=== PATIENT | male | born 1975 | race Caucasian/White ===

== ENCOUNTER 2022-06-13 15:33 | Outpatient (CLI) | payer BC, SELFPAY ==
[2022-06-13 16:08] LABS: Basophils Absolute Auto 0.1 K/mm3 (0.0-0.1); Basophils Percent Auto 0.5 % (0.2-1.2); Eosinophils Absolute Auto 0.2 K/mm3 (0-0.3); Eosinophils Percent Auto 1.4 % (0-4.4); Hematocrit 46.4 % (42.0-52.0); Hemoglobin 15.4 g/dL (14.0-18.0); Immature Granulocyte Absolute 0.03 K/mm3 (0.00-0.031); Immature Granulocyte Percent A 0.3 % (0-0.5); Lymphocytes Absolute Auto 2.76 K/mm3 (0.9-3.2); Lymphocytes Percent Auto 25.1 % (18.3-44.2); Mean Corpuscular HGB Conc 33.2 g/dl (32-36); Mean Corpuscular Hemoglobin 29.2 pg (26-34); Mean Corpuscular Volume 87.9 fl (80-100); Mean Platelet Volume 9.7 fl (7.4-10.4); Monocytes Absolute Auto 0.9 K/mm3 (0.1-0.6); Neutrophils Absolute Auto 7.1 K/mm3 (1.3-6.7); Neutrophils Percent Auto 64.7 % (45.5-73.1); Platelet Count Result 315 k/mm3 (150-375); Red Blood Count 5.28 M/mm3 (4.6-6.20)
[2022-06-13 16:11] LABS: Alanine Aminotransferase 36 U/L (6-50); Albumin Level 4.3 g/dL (3.5-5.1); Alkaline Phosphatase 78 U/L (38-126); Anion Gap 12 mmol/L (8-16); Aspartate Amino Transferase 32 U/L (17-59); Bilirubin,Total 0.8 mg/dL (0.2-1.3); Blood Urea Nitrogen 20 mg/dL (9-20); Calcium 9.1 mg/dL (8.4-10.2); Carbon Dioxide 27 mmol/L (22-30); Chloride 101 mmol/L (98-107); Estimated Glomerular Filt Rate > 60; Glucose 91 mg/dL (65-110); Potassium 3.9 mmol/L (3.4-5.0); Sodium 140 mmol/L (137-145); Uric Acid 4.4 mg/dL (3.5-8.5)
== END 2022-06-13 15:34 | disposition home or self-care (01) ==
LOC: ANHLAB 15:36
PROVIDERS: PCP Family Medicine; Visit Provider Family Medicine
DX: L03.90 Cellulitis, unspecified (principal); I10 Essential (primary) hypertension
CPT/HCPCS: 36415; 80053; 84550; 85025

== ENCOUNTER 2024-09-26 10:30 | Emergency (ER) | payer BC, SELFPAY ==
[2024-09-26 11:01] VITALS: BP 117/81; PULSE 72; RESP 18; TEMP 36.2; O2SAT 98
--- NOTE | 2024-09-26 11:16 | ED.URI ---
HPI - URI/Sore Throat General Chief Complaint: Upper Respiratory Infection Stated Complaint: respiratory issues Source: patient and RN notes reviewed Mode of arrival: ambulatory Limitations: no limitations History of Present Illness HPI Narrative: 49-year-old male with history of diabetes and hypertension presented for complaint of nonproductive cough for about 2 days. Endorses loss of smell and fatigue. Denies shortness of breath, wheezing nausea vomiting diarrhea or lethargy. Tested negative for COVID first day of symptoms. MD elicited complaint: cough Related Data Allergies Allergy/AdvReac Type Severity Reaction Status Date / Time Penicillins Allergy Unknown UNKNOWN Verified 09/26/24 10:57 Review of Systems Review of Systems: Per HPI [facility] Past Medical History Medical History Elevated red blood cell count Wellness examination Gout Fatty liver HEMA (obstructive sleep apnea) Erythrocytosis Type 2 diabetes mellitus without complications Hyperlipidemia Essential hypertension Family History Family History Father Hypertension Sibling Hypertension Grandparent Family history of lung cancer Social History Social History Smoking status: Never smoker Second hand tobacco smoke exposure: No Alcohol intake: current Alcohol use details: rare Substance use: never Substance use type: does not use Living arrangements: with family Occupation/Education: occupation Gender identity (if verbalized by the patient): Male Sexual Orientation (if Verbalized by the Patient): Straight or Heterosexual Exam Narrative: GENERAL: Mildly Ill-appearing, nontoxic no acute distress. ENT: Mucous membranes moist. Bilateral TM pearly fields with dull light reflex, right TM is irregular c/w history of surgery; no tragal tenderness. Oropharynx not erythematous without lesions or exudate, no drooling, no hoarseness, no trismus, uvula midline. No tripod positioning, muffled voice, soft palate or pharyngeal wall bulging NECK: Supple. No lymphadenopathy CHEST: Clear to auscultation, breath sounds equal. Moist cough. No wheezing, rhonchi, rales, or stridor. No respiratory distress, speaks in full sentences. HEART: Regular rate and rhythm. SKIN: Warm, dry, no rash. NEURO: Alert and oriented x3. PSYCH: Normal mood and affect Course Course Emergency Course: Patient is aware of diagnosis, understands and agrees to treatment plan. Anticipatory guidance given. Patient agrees to follow-up as directed and is aware of reasons to seek care at the emergency department. Portions of this record may have been created with voice recognition software Level of Care: Express Care Visit Vital Signs Vital signs: Vital Signs Temperature 97.1 F L 09/26/24 11:01 Pulse Rate 72 09/26/24 11:01 Respiratory Rate 18 09/26/24 11:01 Blood Pressure 117/81 09/26/24 11:01 Pulse Oximetry 98 09/26/24 11:01 Oxygen Delivery Room Air 09/26/24 11:01 Temperature 97.1 F L 09/26/24 11:01 Pulse Rate 72 09/26/24 11:01 Respiratory Rate 18 09/26/24 11:01 Blood Pressure 117/81 09/26/24 11:01 Pulse Oximetry 98 09/26/24 11:01 Oxygen Delivery Room Air 09/26/24 11:01 reviewed MDM - URI/Sore Throat MDM Narrative Medical decision making narrative: neg flu and covid. Discussed physical exam findings. Advised supportive measures and signs/symptoms to go to the ER. Pt is appropriate for outpt treatment and f/u. Differential Diagnosis Differential diagnosis: Likely upper respiratory infection, sinusitis and viral infection Discharge Plan Discharge Clinical Impression: Viral infection Patient Disposition: Home, Self-Care Condition: Stable Instructions: Antibiotic Form, Acute Bronchitis (ED) Additional Instructions: Flu and COVID negative. Acute bronchitis can be contagious because it is usually caused by infection with a virus or bacteria. It is usually for a few days but you can be contagious for up to one week. Avoid crowds until you do not have a fever and symptoms are improved Take medication as directed nter Cough syrup may cause drowsiness; avoid driving or take it at night time. Tylenol 1000mg every 8 hours as needed for pain Symptomatic treatment includes: rest, fluids, and increase humidity of the air at home. Follow up with your primary care provider as needed in 1 week Go to the ER for worsening symptoms or concerns Patient Language: R[place] Prescriptions: New benzonatate 200 mg capsule 200 mg PO TID PRN (Reason: cough) Qty: 20 0RF prednisone 20 mg tablet 40 mg PO DAILY 5 Days Qty: 10 0RF No Action semaglutide 2 mg/dose (8 mg/3 mL) pen injector 2 mg subcut WEEKLY Qty: 9 2RF (DME) FreeStyle Ashok 2 [place] Misc See Rx Instructions .Route Qty: 1 0RF Rx Instructions: test prn (DME) FreeStyle Ashok 14 Day Sensor Kit See Rx Instructions .Route Qty: 6 5RF Rx Instructions: apply q2 wks, test prn sildenafil [Viagra] 50 mg tablet 50 mg PO DAILY PRN (Reason: sexual activity) Qty: 30 0RF Rx Instructions: administer 30 minutes to 4 hours before activity bupropion HCl [Wellbutrin SR] 150 mg tablet sustained-release 12 hr 150 mg PO QAM Qty: 1 0RF indomethacin 50 mg capsule 50 mg PO BID PRN (Reason: gout) Qty: 90 0RF Rx Instructions: do not take with Ibuprofen lisinopril 40 mg tablet See Rx Instructions .ROUTE .COMPLEX Qty: 90 3RF Dose Instruction: TAKE 1 TABLET DAILY Rx Instructions: TAKE 1 TABLET DAILY atorvastatin 10 mg tablet See Rx Instructions .ROUTE .COMPLEX Qty: 90 2RF Dose Instruction: TAKE 1 TABLET DAILY Rx Instructions: TAKE 1 TABLET DAILY hydrochlorothiazide 25 mg tablet 25 mg PO DAILY Qty: 90 0RF metformin 500 mg tablet extended release 24 hr 1,000 mg PO DAILY Qty: 180 2RF Follow-up/Referrals: Antonio Lawson MD [Primary Care Provider] - Time of Disposition: 11:22
[2024-09-26 11:21] LABS: EDCOVIDSCREEN Negative (Negative); EDINFLUASCREEN Negative (Negative); EDINFLUBSCREEN Negative (Negative)
== END 2024-09-26 11:25 | disposition home or self-care (01) ==
PROVIDERS: Emergency Provider Nurse Practitioner Family; PCP Family Medicine
DX: B34.9 Viral infection, unspecified (principal); Z20.822 Contact with and (suspected) exposure to COVID-19; E11.9 Type 2 diabetes mellitus without complications; I10 Essential (primary) hypertension; E78.5 Hyperlipidemia, unspecified; K76.0 Fatty (change of) liver, not elsewhere classified; M10.9 Gout, unspecified
CPT/HCPCS: 87426; 87804; 99213; G0463

== ENCOUNTER 2025-03-18 10:59 | Outpatient (CLI) | payer BC, SELFPAY ==
--- OUTSIDE RECORDS SUMMARY | 2025-03-18 11:46 | XMS_ITS | Clinical Summary ---
Author Organization [facility] Address [address] [place] [address] Care Team Providers Care Braid Folder Name Role Phone Antonio Lawson MD Primary Care Provider Allergies Active Allergy Reactions Criticality Noted Date Comments Aspirin Nausea and Vomiting Low 11/25/2017 Penicillins Hives High 11/25/2017 Medications lisinopril-hydro CHLOROthiazide (ZESTORETIC) 20-12.5 mg tablet Take 1 Tablet by mouth daily. Active metFORMIN (GLUCOPHAGE) 500 mg tablet Take 500 mg by mouth 2 times daily with meals. 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 HYDROcodone-acet aminophen (NORCO) 10-325 mg Tablet TAKE 1 TABLET BY MOUTH 4 TIMES A DAY 0 11/04/2017 Active VENTOLIN HFA 90 mcg/actuation inhaler INHALE 1 TO 2 PUFFS INTO THE LUNGS Q 6 H PRN 0 12/17/2017 Active Active Problems Problem Noted Date Diagnosed Date HTN (hypertension), benign 11/25/2017 DM (diabetes mellitus), type 2 11/25/2017 Erythrocytosis 11/25/2017 Family History Medical History Relation Name Comments Hypertension Brother Hypertension Father Lung Cancer Paternal Grandmother Relation Name Status Comments Brother Father Paternal Grandmother Social History Tobacco Use Types Packs/Day Years Used Date Smoking Tobacco: Never Smokeless Tobacco: Former Chew Quit: 2014 Alcohol Use Standard Drinks/Week Comments No 0 (1 standard drink = 0.6 oz pur e alcohol) occasionally Sex and Gender Information Value Date Recorded Sex Assigned at Not on file Legal Sex Male 3:36 PM CDT Gender Identity Not on file Sexual Orientation Not on file Last Filed Vital Signs Vital Sign Reading Time Taken Comments Blood Pressure 109/71 06/20/2018 11:47 AM [facility] Pulse 82 06/20/2018 11:47 AM [facility] [employer] Temperature 36.6 C (97.8 F) 06/20/2018 11:47 AM [facility] [employer] Respiratory Rate 18 01/09/2018 11:19 AM CDT Oxygen Saturation 93% 06/20/2018 11:47 AM [employer] Inhaled Oxygen Concentration - - Weight 102.5 kg (226 lb) 06/20/2018 11:47 AM [facility] [employer] Height 167.6 cm (5' 6) 06/20/2018 11:47 AM [employer] [employer] Body Mass Index 36.48 06/20/2018 11:47 AM [facility] [employer] Plan of Treatment Health Maintenance Due Date Last Done Comments DIABETES ANNUAL FOOT EXAM 1991 DIABETES ANNUAL RETINAL EXAM 1991 DIABETES HBA1C Q 6 MONTHS 1991 DIABETES MICROALBUMIN ANNUAL SCREEN 1991 LDL CHOLESTEROL ANNUAL 1991 DTAP/TDAP/TD VACCINES (1 - Tdap) 1992 HEPATITIS B VACCINES (1 of 3 - 19+ 3-dose series) 08/29 COLORECTAL SCREENING 2018 Colorectal Cancer Screening 2018 FIT-DNA Q 3 years 2018 FIT/FOBT Q 1 year 2018 Flex Sig/CT Colonography Q 5 years 2018 ZOSTER VACCINE (1 of 2) 2023 INFLUENZA VACCINE (#1) 2025 Insurance [facility] BLUE ACCESS CHOICE Care Teams Braid Folder Relationship Specialty Start Date End Date Antonio Lawson MD [address] [place] [address] PCP - General Family Practice 11/25/17
--- OUTSIDE RECORDS SUMMARY | 2025-03-18 11:46 | XMS_ITS | Patient Health Record ---
Author Organization [facility] [place] [employer] [facility] Address [address] [place] [address] Care Team Providers Care Skip Pitman Name Role Phone Antonio Lawson MD Primary Care Provider Unavaila Fatoumata Espino Unavailable [phone] Malaika Castro Unavailable [phone] Allergies Allergen (clinical drug ingredient) Drug/Non Drug Allergy documented on EMR Reaction Allergy Type Onset Date Status Substance with penicillin structure and antibacterial mechanism of action (substance) Penicillins Unknown Drug Allergy 10/18/2023 Active Reason For Referral No Information Medications Medication SIG (Take, Route, Frequency, Duration) Notes Start Date End Date Status Modafinil 200 MG Tablet 1 tablet in the morning Orally Once a day; Duration: 30 days CaseId:[id number];Status:Appro loly;Review Type:Prior Auth;Coverage Start Date: 5;Coverage End Date: 6; 02/19/2025 03/21/2025 Active Ashwagandha 500 MG Capsule as directed Orally Active hydroCHLOROthiazide 25 MG Tablet Oral 10/18/2023 Active oxyCODONE-Acetaminophen 10-325 MG Tablet Oral 10/18/2023 Active Lisinopril 40 MG Tablet Oral 10/18/2023 Active metFORMIN HCl ER 500 MG Tablet Extended Release 24 Hour Oral 10/18/2023 Active FLUoxetine HCl 40 MG Capsule 1 capsule every Morning Oral Once a day; Duration: 90 days Active Armodafinil 150 MG Tablet 1 tablet Orall y Once a day; Duration: 30 days PA approved; coverage start 02/08/2025, ends 03/10/2026 03/10/2025 Active Atorvastatin Calcium 10 MG Tablet Oral 10/18/2023 Active Sildenafil Citrate 50 MG Tablet Oral 10/18/2023 Active Ibuprofen 800 MG Tablet Oral 10/18/2023 Active Ozempic (1 MG/DOSE) 4 MG/3ML Solution Pen-injector Subcutaneous *Pick strength-form from [employer] for eRX* 10/18/2023 Active Social History Tobacco Use: Social History Observation Description Date Details (start date - stop date) Never Smoker NA - NA Sex Assigned At : Social History Observation Description Sex Assigned At Male Social History Miscellaneous: Social Info Question Answer Notes Advance Care Planning Are you your own decision-maker Yes Do you have Power of Flight Crew Time Clerk for Health or [facility] carla? No Safety issues: Are there any firearms in the house? Ye s Social History Social Info Question Answer Notes Household: Marital Status: Number of Adults in household: 2 Number of Children in Household: 2 Level of Education: Finished High School Household: Social Info Question Answer Notes Household Marital status: Any household tobacco use? No Drug/Alcohol: Social Info Question Answer Notes Drugs Have you used drugs other than those for medical reasons in the past 12 months? Yes Marijuana? Yes AUDIT-C (Standard) Interpretation Positive Did you have a drink contain ing alcohol in the past year? Yes How often did you have six or more drinks on one occasion in the past year? Less than monthly (1 point) How many drinks did you have on a typical day when you were drinking in the past year? 1 or 2 drinks (0 point) How often did you have a drink containing alcohol in the past year? 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 Occasionally Do you drink alcohol? Occasional ly Section Notes: Social History Substance Use Do you or have you ever smoked tobacco?: Never smoker How much tobacco do you smoke?: None Do you or have you ever used e-cigarettes or vape?: Never used electronic cigarettes What was the date of your most recent tobacco screening?: 10/18/2023 Has tobacco cessation counseling been provided?: No What is your level of alcohol consumption?: Occasional How many years have you consumed alcohol?: 30 Do you use any illicit or recreational drugs?: No Which illicit or recreational drugs have you used?: Pot, Cocaine Have you used IV drugs?: No What is your level of caffeine consumption?: Moderate Education and Occupation What is the highest grade or level of school you have completed or the highest degree you have received?: High school graduate Are you currently employed?: Yes 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 [employer] Marriage and Sexuality What is your relationship status?: Are you sexually active?: No Do you use protection during sex?: No How many children do you have?: 2 Home and Environment Do you have any pets?: Yes Do you have smoke and carbon monoxide detectors in your home?: Yes Are you passively exposed to smoke?: No Are there any smokers in your house?: No Are there any guns present in your home?: Yes Diet and Exercise What type of diet are you following?: Regular What is your exercise level?: Occasional Lifestyle Do you feel stressed (tense, restless, nervous, or anxious, or unable to sleep at night)?: Rather much Advance Directive Do you have an advance directive?: No Do you have a medical power of bankruptcy attorney?: No Activities of Daily Living Are you able to care for yourself?: Yes Are you blind or do you have difficulty seeing?: No Are you deaf or do you have serious difficulty hearing? : No Do you have difficulty concentrating, remembering or making decisions?: Yes (Notes: depends) Do you have difficulty walking or climbing stairs?: No Do you have difficulty dressing or bathing?: No Do you have difficulty doing errands alone?: No Are you able to walk?: Yes: walks without restrictions Gender Identity and LGBTQ Identity Gender identity: Identifies as Male Assigned sex at : Male Sexual orientation: Straight or heterosexual Social History Substance Use Do you or have you ever smoked tobacco?: Never smoker How much tobacco do you smoke?: None Do you or have you ever used e-cigarettes or vape?: Never used electronic cigarettes What was the date of your most recent tobacco screening?: 10/18/2023 Has tobacco cessation counseling been provided?: No What is your level of alcohol consumption?: Occasional How many years have you consumed alcohol?: 30 Do you use any illicit or recreational drugs?: No Which illicit or recreational drugs have you used?: Pot, Cocaine Have you used IV drugs?: No What is your level of caffeine consumption?: Moderate Education and Occupation What is the highest grade or level of school you have completed or the highest degree you have received?: High school graduate Are you currently employed?: Yes 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 [employer] Marriage and Sexuality What is your relationship status?: Are you sexually active?: No Do you use protection during sex?: No How many children do you have?: 2 Home and Environment Do you have any pets?: Yes Do you have smoke and carbon monoxide detectors in your home?: Yes Are you passively exposed to smoke?: No Are there any smokers in your house?: No Are there any guns present in your home?: Yes Diet and Exercise What type of diet are you following?: Regular What is your exercise level?: Occasional Lifestyle Do you feel stressed (tense, restless, nervous, or anxious, or unable to sleep at night)?: Rather much Advance Directive Do you have an advance directive?: No Do you have a medical power of bankruptcy attorney?: No Gender Identity and LGBTQ Identity Gender identity: Identifies as Male Assigned sex at : Male Sexual orientation: Straight or heterosexual Which illicit or recreational drugs have you used?: Pot, Cocaine What is your level of caffeine consumption?: Moderate Problems Problem Type SNOMED Code ICD Code Onset Dates Problem Status W/U Status Risk Notes Problem Mild recurrent major depression (09035908) Major depressive disorder, recurrent, mild (F33.0) Active confirmed Problem Recurrent major depression in full remission (40472557) Major depressive disorder, recurrent, in full remission (F33.42) 10/18/19 24 Active confirmed Problem Generalized anxiety disorder (55462543) Generalized anxiety disorder (F41.1) 10/18/19 24 Active confirmed Problem Obstructive sleep apnea syndrome (disorder) (24568053) Obstructive sleep apnea (adult) (pediatric) (G47.33) 10/18/19 24 Active confirmed Problem Obstructive sleep apnea syndrome (87800055) HEMA (obstructive sleep apnea) (G47.33) Active confirmed Problem Poor concentration (77582302) Poor concentration (R41.840) Active confirmed Problem Chronic fatigue syndrome (54051533) Chronic fatigue (R53.82) Active confirmed Problem Fatigue (35693864) Fatigue (R53.83) Active confirmed Problem Essential hypertension (21694727) Benign essential HTN (I10) Active confirmed Vital Signs Heart Rate 80 /min 02/19/2025 Height-cm 167.64 cm 02/19/2025 Blood pressure diastolic 78 mm Hg 02/19/2025 Weight-kg 87.09 kg 02/19/2025 Height 66.00 in 02/19/2025 Blood pressure systolic 122 mm Hg 02/19/2025 Weight 192 lbs 02/19/2025 BMI 30.99 kg/m2 02/19/2025 Encounters Encounter Location Date Provider Diagnosis [facility] [place] [facility] [address] [address] 04/03/2024 Malaika Castro Generalized anxiety disorder F41.1 ; Major depressive disorder, recurrent, in full remission F33.42 ; Other fatigue R53.83 and Obstructive sleep apnea (adult) (pediatric) G47.33 [facility] [place] [facility] [address] [address] 07/10/2024 Fatoumata Genao Generalized anxiety disorder F41.1 ; Major depressive disorder, recurrent, mild F33.0 ; Poor concentration R41.840 ; Fatigue R53.83 ; Obstructive sleep apnea (adult) (pediatric) G47.33 and HTN (hypertension), benign I10 [facility] [place] [facility] [address] [address] 08/21/2024 Fatoumata Genao Generalized anxiety disorder F41.1 ; Major depressive disorder, recurrent, mild F33.0 ; Poor concentration R41.840 ; Fatigue R53.83 ; Obstructive sleep apnea (adult) (pediatric) G47.33 and HTN (hypertension), benign I10 [facility] [place] [id number] [facility] [address] [address] 10/02/2024 Fatoumata Genao [facility] [place] [employer] [address] 10/16/2024 Fatoumata Genao Generalized anxiety disorder F41.1 ; Major depressive disorder, recurrent, mild F33.0 ; Poor concentration R41.840 ; Fatigue R53.83 ; Obstructive sleep apnea (adult) (pediatric) G47.33 ; Benign essential HTN I10 and Negative depression screening Z13.[address] [address] 12/11/2024 Fatoumatapop Rodgersmike Major depressive disorder, recurrent, in full remission F33.42 ; Generalized anxiety disorder F41.1 ; Obstructive sleep apnea (adult) (pediatric) G47.33 ; Fatigue R53.83 ; Negative depression screening Z13.31 and Encounter for screening for cardiovascular disorders Z13.[address] [address] 01/15/2025 Fatoumata Genao Major depressive disorder, recurrent, in full remission F33.42 ; Generalized anxiety disorder F41.1 ; Chronic fatigue R53.82 ; HEMA (obstructive sleep apnea) G47.33 ; Encounter for screening for depression Z13.31 ; Encounter for screening for cardiovascular disorders Z13.6 and Negative depression screening Z13.[address] [address] 02/19/2025 Fatoumata Genao Major depressive disorder, recurrent, in full remission F33.42 ; Generalized anxiety disorder F41.1 ; Chronic fatigue R53.82 and HEMA (obstructive sleep apnea) G47.[address] [address] 12/16/2024 Fatoumata Genao [address] [address] 02/19/2025 Fatoumata Genao Major depressive disorder, recurrent, in full remission F33.[address] [address] 12/25/2024 Fatoumata Genao HEMA (obstructive sle ep apnea) G47.33 and Chronic fatigue R53.[address] [address] 12/25/2024 Fatoumata Genao Assessments Encounter Date Diagnosis (ICD Code) Assessment Notes Treatment Notes Treatment Clinical Notes Section Notes 04/03/2024 Generalized anxiety disorder (ICD-10 - F41.1) stopped wellbutrin on saturday felt made irritable cont escitalopram 20mg qhs recommend therapy not clear if SSRI increase is beneficial, stopped NDRI on saturday, thinks was making more irritable/unma nageable. Discuss options, shared decision to cont SSRI alone, see if improvement without NDRI, if not likely change SSRI. recommend get labs done and f/u with PCP (reports has orders) recommend therapy-not interested f/u 2 month, earlier if concerns notes: -is motivated to get adderall for energy, see 01/11/23 note for discussion of low energy contributors and concerns for prescribing adderall. consider refer back to sleep medicine and they can consider if stimulant appropriate r/t complaints/HEMA -filling #112 opiate pills monthly (oxycodone/darnell taminophen)-sa ys takes significantly less than filled 07/10/2024 Major depressive disorder, recurrent, mild (ICD-10 - F33.0) Anxiety - Ongoing anxiety despite Lexapro 20 mg daily Plan: - Discontinue Lexapro - Start fluoxetine 10 mg daily for 3 weeks, then 20 mg daily thereafter - Slow taper to avoid possibly of increasing anxiety if able, he's reported issues starting new medications before - Monitor response to new medication and adjust as needed - Monitor for changes in sexual side effects with switch to Prozac Depression - History of depression, some improvement but some symptoms still linger Plan: - Prozac will hopefully target both anxiety and depression - Monitor mood and response to new medication Fatigue and low energy - Persistent fatigue and low energy, suspecting ADHD Plan: - Discusses stimulants are not typically presribed for low energy - Noted HEMA without CPAP use, unable to tolerate. Candidate for Sunosi? Explore next visit. - Obtain detailed ADHD history next visisrt and possible ADHD testing. HEMA - Excessive sleep, reports of stopping breathing during sleep - Diagnosed with HEMA and has not been able to tolerate CPAP. Notes has lost 30 lbs since diagnosis. - Reports trying to use a mouth guard. Plan: - Encourage consistent CPAP machine use - Monitor for improvements in sleep quality and energy levels - Encourage follow up with PCP for HEMA and fatige concerns as well. Follow-up appointment in 6 weeks, sooner if concerns arise. 07/10/2024 Generalized anxiety disorder (ICD-10 - F41.1) Anxiety - Ongoing anxiety despite Lexapro 20 mg daily Plan: - Discontinue Lexapro - Start fluoxetine 10 mg daily for 3 weeks, then 20 mg daily thereafter - Slow taper to avoid possibly of increasing anxiety if able, he's reported issues starting new medications before - Monitor response to new medication and adjust as needed - Monitor for changes in sexual side effects with switch to Prozac Depression - History of depression, some improvement but some symptoms still linger Plan: - Prozac will hopefully target both anxiety and depression - Monitor mood and response to new medication Fatigue and low energy - Persistent fatigue and low energy, suspecting ADHD Plan: - Discusses stimulants are not typically presribed for low energy - Noted HEMA without CPAP use, unable to tolerate. Candidate for Sunosi? Explore next visit. - Obtain detailed ADHD history next visisrt and possible ADHD testing. HEMA - Excessive sleep, reports of stopping breathing during sleep - Diagnosed with HEMA and has not been able to tolerate CPAP. Notes has lost 30 lbs since diagnosis. - Reports trying to use a mouth guard. Plan: - Encourage consistent CPAP machine use - Monitor for improvements in sleep quality and energy levels - Encourage follow up with PCP for HEMA and fatige concerns as well. Follow-up appointment in 6 weeks, sooner if concerns arise. 08/21/2024 Generalized anxiety disorder (ICD-10 - F41.1) Anxiety - Ongoing anxiety and irritability Plan: - increase fluoxetine 40 mg daily - Monitor response to increase, may be worsening irritability - If no response, explore trintellix Depression - some improvement Plan: - Monitor mood and response to incease in fluoxetine Fatigue and low energy - Persistent fatigue and low energy Plan: - Noted HEMA without CPAP use, unable to tolerate. - Candidate for Sunosi? Explore next visit. HEMA - Diagnosed with HEMA and has not been able to tolerate CPAP Plan: - Encourage follow up with PCP for HEMA and fatige concerns as well. - He reports plan to return to PCP and get a new sleep study, as last one is in 2018 and has had changes in weight since Follow-up appointment in 6 weeks, sooner if concerns arise. 12/11/2024 Major depressive disorder, recurrent, in full remission (ICD-10 - F33.42) 12/11/2024 Generalized anxiety disorder (ICD-10 - F41.1) 10/16/2024 Generalized anxiety disorder (ICD-10 - F41.1) Major Depressive Disorder and Anxiety Assessment: Patient reports slight improvement in mood, attributing it to medication effect. Reports anxiety is more manageable and irritability has lessened. Concentration remains iffy, and sleep patterns are unchanged. Currently on fluoxetine for depression management. No reported side effects or adverse reactions to the medication. Plan: - Continue fluoxetine 40 mg daily - Monitor for further improvement in mood and concentration - Reassess need for medication adjustment at follow-up - Offer therapy referral if patient expresses interest Obstructive Sleep Apnea Assessment: Patient has a history of mild obstructive sleep apnea diagnosed in 2018 with 5 episodes per hour. Recent weight loss from 230 lbs to 210 lbs may impact severity. Patient is scheduled for a repeat sleep study to reassess current status and determine candidacy for Inspire implant. Patient expresses preference to avoid CPAP if possible. Plan: - Proceed with scheduled repeat sleep study - Await results to determine appropriate treatment course (CPAP vs. Inspire implant) - Encourage continued weight loss efforts - Educate on the importance of treating sleep apnea for cardiovascular health Follow-up appointment in 2 months, sooner if concerns arise. 12/25/2024 HEMA (obstructive sleep apnea) (ICD-10 - G47.33) 12/25/2024 Chronic fatigue (ICD-10 - R53.82) Electronic Prior Authorization was requested for Modafinil 100 MG Tablet. Provider can order medication once approval received. 01/15/2025 Major depressive disorder, recurrent, in full remission (ICD-10 - F33.42) 01/15/2025 Generalized anxiety disorder (ICD-10 - F41.1) 02/19/2025 Major depressive disorder, recurrent, in full remission (ICD-10 - F33.42) 02/19/2025 Major depressive disorder, recurrent, in full remission (ICD-10 - F33.42) 02/19/2025 Generalized anxiety disorder (ICD-10 - F41.1) 10/16/2024 Major depressive disorder, recurrent, mild (ICD-10 - F33.0) Major Depressive Disorder and Anxiety Assessment: Patient reports slight improvement in mood, attributing it to medication effect. Reports anxiety is more manageable and irritability has lessened. Concentration remains iffy, and sleep patterns are unchanged. Currently on fluoxetine for depression management. No reported side effects or adverse reactions to the medication. Plan: - Continue fluoxetine 40 mg daily - Monitor for further improvement in mood and concentration - Reassess need for medication adjustment at follow-up - Offer therapy referral if patient expresses interest Obstructive Sleep Apnea Assessment: Patient has a history of mild obstructive sleep apnea diagnosed in 2018 with 5 episodes per hour. Recent weight loss from 230 lbs to 210 lbs may impact severity. Patient is scheduled for a repeat sleep study to reassess current status and determine candidacy for Inspire implant. Patient expresses preference to avoid CPAP if possible. Plan: - Proceed with scheduled repeat sleep study - Await results to determine appropriate treatment course (CPAP vs. Inspire implant) - Encourage continued weight loss efforts - Educate on the importance of treating sleep apnea for cardiovascular health Follow-up appointment in 2 months, sooner if concerns arise. 01/15/2025 Chronic fatigue (ICD-10 - R53.82) 12/11/2024 Obstructive sleep apnea (adult) (pediatric) (ICD-10 - G47.33) 10/16/2024 Poor concentration (ICD-10 - R41.840) Major Depressive Disorder and Anxiety Assessment: Patient reports slight improvement in mood, attributing it to medication effect. Reports anxiety is more manageable and irritability has lessened. Concentration remains iffy, and sleep patterns are unchanged. Currently on fluoxetine for depression management. No reported side effects or adverse reactions to the medication. Plan: - Continue fluoxetine 40 mg daily - Monitor for further improvement in mood and concentration - Reassess need for medication adjustment at follow-up - Offer therapy referral if patient expresses interest Obstructive Sleep Apnea Assessment: Patient has a history of mild obstructive sleep apnea diagnosed in 2018 with 5 episodes per hour. Recent weight loss from 230 lbs to 210 lbs may impact severity. Patient is scheduled for a repeat sleep study to reassess current status and determine candidacy for Inspire implant. Patient expresses preference to avoid CPAP if possible. Plan: - Proceed with scheduled repeat sleep study - Await results to determine appropriate treatment course (CPAP vs. Inspire implant) - Encourage continued weight loss efforts - Educate on the importance of treating sleep apnea for cardiovascular health Follow-up appointment in 2 months, sooner if concerns arise. 07/10/2024 Poor concentration (ICD-10 - R41.840) Anxiety - Ongoing anxiety despite Lexapro 20 mg daily Plan: - Discontinue Lexapro - Start fluoxetine 10 mg daily for 3 weeks, then 20 mg daily thereafter - Slow taper to avoid possibly of increasing anxiety if able, he's reported issues starting new medications before - Monitor response to new medication and adjust as needed - Monitor for changes in sexual side effects with switch to Prozac Depression - History of depression, some improvement but some symptoms still linger Plan: - Prozac will hopefully target both anxiety and depression - Monitor mood and response to new medication Fatigue and low energy - Persistent fatigue and low energy, suspecting ADHD Plan: - Discusses stimulants are not typically presribed for low energy - Noted HEMA without CPAP use, unable to tolerate. Candidate for Sunosi? Explore next visit. - Obtain detailed ADHD history next visisrt and possible ADHD testing. HEMA - Excessive sleep, reports of stopping breathing during sleep - Diagnosed with HEMA and has not been able to tolerate CPAP. Notes has lost 30 lbs since diagnosis. - Reports trying to use a mouth guard. Plan: - Encourage consistent CPAP machine use - Monitor for improvements in sleep quality and energy levels - Encourage follow up with PCP for HEMA and fatige concerns as well. Follow-up appointment in 6 weeks, sooner if concerns arise. 08/21/2024 Major depressive disorder, recurrent, mild (ICD-10 - F33.0) Anxiety - Ongoing anxiety and irritability Plan: - increase fluoxetine 40 mg daily - Monitor response to increase, may be worsening irritability - If no response, explore trintellix Depression - some improvement Plan: - Monitor mood and response to incease in fluoxetine Fatigue and low energy - Persistent fatigue and low energy Plan: - Noted HEMA without CPAP use, unable to tolerate. - Candidate for Sunosi? Explore next visit. HEMA - Diagnosed with HEMA and has not been able to tolerate CPAP Plan: - Encourage follow up with PCP for HEMA and fatige concerns as well. - He reports plan to return to PCP and get a new sleep study, as last one is in 2018 and has had changes in weight since Follow-up appointment in 6 weeks, sooner if concerns arise. 04/03/2024 Major depressive disorder, recurrent, in full remission (ICD-10 - F33.42) meds as above 04/03/2024 Other fatigue (ICD-10 - R53.83) as above/no change with decrease SSRI f/u PCP about complaints; reports has lab ordersfollow up with sleep medicinerecommend healthy diet and exercise 07/10/2024 Fatigue (ICD-10 - R53.83) Anxiety - Ongoing anxiety despite Lexapro 20 mg daily Plan: - Discontinue Lexapro - Start fluoxetine 10 mg daily for 3 weeks, then 20 mg daily thereafter - Slow taper to avoid possibly of increasing anxiety if able, he's reported issues starting new medications before - Monitor response to new medication and adjust as needed - Monitor for changes in sexual side effects with switch to Prozac Depression - History of depression, some improvement but some symptoms still linger Plan: - Prozac will hopefully target both anxiety and depression - Monitor mood and response to new medication Fatigue and low energy - Persistent fatigue and low energy, suspecting ADHD Plan: - Discusses stimulants are not typically presribed for low energy - Noted HEMA without CPAP use, unable to tolerate. Candidate for Sunosi? Explore next visit. - Obtain detailed ADHD history next visisrt and possible ADHD testing. HEMA - Excessive sleep, reports of stopping breathing during sleep - Diagnosed with HEMA and has not been able to tolerate CPAP. Notes has lost 30 lbs since diagnosis. - Reports trying to use a mouth guard. Plan: - Encourage consistent CPAP machine use - Monitor for improvements in sleep quality and energy levels - Encourage follow up with PCP for HEMA and fatige concerns as well. Follow-up appointment in 6 weeks, sooner if concerns arise. 08/21/2024 Poor concentration (ICD-10 - R41.840) Anxiety - Ongoing anxiety and irritability Plan: - increase fluoxetine 40 mg daily - Monitor response to increase, may be worsening irritability - If no response, explore trintellix Depression - some improvement Plan: - Monitor mood and response to incease in fluoxetine Fatigue and low energy - Persistent fatigue and low energy Plan: - Noted HEMA without CPAP use, unable to tolerate. - Candidate for Sunosi? Explore next visit. HEMA - Diagnosed with HEMA and has not been able to tolerate CPAP Plan: - Encourage follow up with PCP for HEMA and fatige concerns as well. - He reports plan to return to PCP and get a new sleep study, as last one is in 2018 and has had changes in weight since Follow-up appointment in 6 weeks, sooner if concerns arise. 10/16/2024 Fatigue (ICD-10 - R53.83) Major Depressive Disorder and Anxiety Assessment: Patient reports slight improvement in mood, attributing it to medication effect. Reports anxiety is more manageable and irritability has lessened. Concentration remains iffy, and sleep patterns are unchanged. Currently on fluoxetine for depression management. No reported side effects or adverse reactions to the medication. Plan: - Continue fluoxetine 40 mg daily - Monitor for further improvement in mood and concentration - Reassess need for medication adjustment at follow-up - Offer therapy referral if patient expresses interest Obstructive Sleep Apnea Assessment: Patient has a history of mild obstructive sleep apnea diagnosed in 2018 with 5 episodes per hour. Recent weight loss from 230 lbs to 210 lbs may impact severity. Patient is scheduled for a repeat sleep study to reassess current status and determine candidacy for Inspire implant. Patient expresses preference to avoid CPAP if possible. Plan: - Proceed with scheduled repeat sleep study - Await results to determine appropriate treatment course (CPAP vs. Inspire implant) - Encourage continued weight loss efforts - Educate on the importance of treating sleep apnea for cardiovascular health Follow-up appointment in 2 months, sooner if concerns arise. 12/11/2024 Fatigue (ICD-10 - R53.83) 01/15/2025 HEMA (obstructive sleep apnea) (ICD-10 - G47.33) 02/19/2025 Chronic fatigue (ICD-10 - R53.82) Electronic Prior Authorization was requested for Armodafinil 150 MG Tablet. Provider can order medication once approval received. 02/19/2025 HEMA (obstructive sleep apnea) (ICD-10 - G47.33) 01/15/2025 Encounter for screening for depression (ICD-10 - Z13.31) 12/11/2024 Negative depression screening (ICD-10 - Z13.31) 10/16/2024 Obstructive sleep apnea (adult) (pediatric) (ICD-10 - G47.33) Major Depressive Disorder and Anxiety Assessment: Patient reports slight improvement in mood, attributing it to medication effect. Reports anxiety is more manageable and irritability has lessened. Concentration remains iffy, and sleep patterns are unchanged. Currently on fluoxetine for depression management. No reported side effects or adverse reactions to the medication. Plan: - Continue fluoxetine 40 mg daily - Monitor for further improvement in mood and concentration - Reassess need for medication adjustment at follow-up - Offer therapy referral if patient expresses interest Obstructive Sleep Apnea Assessment: Patient has a history of mild obstructive sleep apnea diagnosed in 2018 with 5 episodes per hour. Recent weight loss from 230 lbs to 210 lbs may impact severity. Patient is scheduled for a repeat sleep study to reassess current status and determine candidacy for Inspire implant. Patient expresses preference to avoid CPAP if possible. Plan: - Proceed with scheduled repeat sleep study - Await results to determine appropriate treatment course (CPAP vs. Inspire implant) - Encourage continued weight loss efforts - Educate on the importance of treating sleep apnea for cardiovascular health Follow-up appointment in 2 months, sooner if concerns arise. 08/21/2024 Fatigue (ICD-10 - R53.83) Anxiety - Ongoing anxiety and irritability Plan: - increase fluoxetine 40 mg daily - Monitor response to increase, may be worsening irritability - If no response, explore trintellix Depression - some improvement Plan: - Monitor mood and response to incease in fluoxetine Fatigue and low energy - Persistent fatigue and low energy Plan: - Noted HEMA without CPAP use, unable to tolerate. - Candidate for Sunosi? Explore next visit. HEMA - Diagnosed with HEMA and has not been able to tolerate CPAP Plan: - Encourage follow up with PCP for HEMA and fatige concerns as well. - He reports plan to return to PCP and get a new sleep study, as last one is in 2018 and has had changes in weight since Follow-up appointment in 6 weeks, sooner if concerns arise. 07/10/2024 Obstructive sleep apnea (adult) (pediatric) (ICD-10 - G47.33) Anxiety - Ongoing anxiety despite Lexapro 20 mg daily Plan: - Discontinue Lexapro - Start fluoxetine 10 mg daily for 3 weeks, then 20 mg daily thereafter - Slow taper to avoid possibly of increasing anxiety if able, he's reported issues starting new medications before - Monitor response to new medication and adjust as needed - Monitor for changes in sexual side effects with switch to Prozac Depression - History of depression, some improvement but some symptoms still linger Plan: - Prozac will hopefully target both anxiety and depression - Monitor mood and response to new medication Fatigue and low energy - Persistent fatigue and low energy, suspecting ADHD Plan: - Discusses stimulants are not typically presribed for low energy - Noted HEMA without CPAP use, unable to tolerate. Candidate for Sunosi? Explore next visit. - Obtain detailed ADHD history next visisrt and possible ADHD testing. HEMA - Excessive sleep, reports of stopping breathing during sleep - Diagnosed with HEMA and has not been able to tolerate CPAP. Notes has lost 30 lbs since diagnosis. - Reports trying to use a mouth guard. Plan: - Encourage consistent CPAP machine use - Monitor for improvements in sleep quality and energy levels - Encourage follow up with PCP for HEMA and fatige concerns as well. Follow-up appointment in 6 weeks, sooner if concerns arise. 04/03/2024 Obstructive sleep apnea (adult) (pediatric) (ICD-10 - G47.33) recommend follow up with PCP/sleep medicine ongoing c/o fatigue, hx erythrocytosisdoes not use CPAP 08/21/2024 Obstructive sleep apnea (adult) (pediatric) (ICD-10 - G47.33) Anxiety - Ongoing anxiety and irritability Plan: - increase fluoxetine 40 mg daily - Monitor response to increase, may be worsening irritability - If no response, explore trintellix Depression - some improvement Plan: - Monitor mood and response to incease in fluoxetine Fatigue and low energy - Persistent fatigue and low energy Plan: - Noted HEMA without CPAP use, unable to tolerate. - Candidate for Sunosi? Explore next visit. HEMA - Diagnosed with HEMA and has not been able to tolerate CPAP Plan: - Encourage follow up with PCP for HEMA and fatige concerns as well. - He reports plan to return to PCP and get a new sleep study, as last one is in 2018 and has had changes in weight since Follow-up appointment in 6 weeks, sooner if concerns arise. 07/10/2024 HTN (hypertension), benign (ICD-10 - I10) Anxiety - Ongoing anxiety despite Lexapro 20 mg daily Plan: - Discontinue Lexapro - Start fluoxetine 10 mg daily for 3 weeks, then 20 mg daily thereafter - Slow taper to avoid possibly of increasing anxiety if able, he's reported issues starting new medications before - Monitor response to new medication and adjust as needed - Monitor for changes in sexual side effects with switch to Prozac Depression - History of depression, some improvement but some symptoms still linger Plan: - Prozac will hopefully target both anxiety and depression - Monitor mood and response to new medication Fatigue and low energy - Persistent fatigue and low energy, suspecting ADHD Plan: - Discusses stimulants are not typically presribed for low energy - Noted HEMA without CPAP use, unable to tolerate. Candidate for Sunosi? Explore next visit. - Obtain detailed ADHD history next visisrt and possible ADHD testing. HEMA - Excessive sleep, reports of stopping breathing during sleep - Diagnosed with HEMA and has not been able to tolerate CPAP. Notes has lost 30 lbs since diagnosis. - Reports trying to use a mouth guard. Plan: - Encourage consistent CPAP machine use - Monitor for improvements in sleep quality and energy levels - Encourage follow up with PCP for HEMA and fatige concerns as well. Follow-up appointment in 6 weeks, sooner if concerns arise. 01/15/2025 Encounter for screening for cardiovascular disorders (ICD-10 - Z13.6) 12/11/2024 Encounter for screening for cardiovascular disorders (ICD-10 - Z13.6) 10/16/2024 Benign essential HTN (ICD-10 - I10) Major Depressive Disorder and Anxiety Assessment: Patient reports slight improvement in mood, attributing it to medication effect. Reports anxiety is more manageable and irritability has lessened. Concentration remains iffy, and sleep patterns are unchanged. Currently on fluoxetine for depression management. No reported side effects or adverse reactions to the medication. Plan: - Continue fluoxetine 40 mg daily - Monitor for further improvement in mood and concentration - Reassess need for medication adjustment at follow-up - Offer therapy referral if patient expresses interest Obstructive Sleep Apnea Assessment: Patient has a history of mild obstructive sleep apnea diagnosed in 2018 with 5 episodes per hour. Recent weight loss from 230 lbs to 210 lbs may impact severity. Patient is scheduled for a repeat sleep study to reassess current status and determine candidacy for Inspire implant. Patient expresses preference to avoid CPAP if possible. Plan: - Proceed with scheduled repeat sleep study - Await results to determine appropriate treatment course (CPAP vs. Inspire implant) - Encourage continued weight loss efforts - Educate on the importance of treating sleep apnea for cardiovascular health Follow-up appointment in 2 months, sooner if concerns arise. 08/21/2024 HTN (hypertension), benign (ICD-10 - I10) Anxiety - Ongoing anxiety and irritability Plan: - increase fluoxetine 40 mg daily - Monitor response to increase, may be worsening irritability - If no response, explore trintellix Depression - some improvement Plan: - Monitor mood and response to incease in fluoxetine Fatigue and low energy - Persistent fatigue and low energy Plan: - Noted HEMA without CPAP use, unable to tolerate. - Candidate for Sunosi? Explore next visit. HEMA - Diagnosed with HEMA and has not been able to tolerate CPAP Plan: - Encourage follow up with PCP for HEMA and fatige concerns as well. - He reports plan to return to PCP and get a new sleep study, as last one is in 2018 and has had changes in weight since Follow-up appointment in 6 weeks, sooner if concerns arise. 01/15/2025 Negative depression screening (ICD-10 - Z13.31) 10/16/2024 Negative depression screening (ICD-10 - Z13.31) Major Depressive Disorder and Anxiety Assessment: Patient reports slight improvement in mood, attributing it to medication effect. Reports anxiety is more manageable and irritability has lessened. Concentration remains iffy, and sleep patterns are unchanged. Currently on fluoxetine for depression management. No reported side effects or adverse reactions to the medication. Plan: - Continue fluoxetine 40 mg daily - Monitor for further improvement in mood and concentration - Reassess need for medication adjustment at follow-up - Offer therapy referral if patient expresses interest Obstructive Sleep Apnea Assessment: Patient has a history of mild obstructive sleep apnea diagnosed in 2018 with 5 episodes per hour. Recent weight loss from 230 lbs to 210 lbs may impact severity. Patient is scheduled for a repeat sleep study to reassess current status and determine candidacy for Inspire implant. Patient expresses preference to avoid CPAP if possible. Plan: - Proceed with scheduled repeat sleep study - Await results to determine appropriate treatment course (CPAP vs. Inspire implant) - Encourage continued weight loss efforts - Educate on the importance of treating sleep apnea for cardiovascular health Follow-up appointment in 2 months, sooner if concerns arise. 12/11/2024 Judy Davis is a male patient with a history of mild obstructive sleep apnea (HEMA) and obesity presenting with persistent daytime fatigue despite improved mood and sleep patterns. Excessive Daytime Sleepiness (EDS) associated with Obstructive Sleep Apnea (HEMA) Assessment: Patient reports ongoing fatigue and daytime sleepiness despite sleeping from 7:30-8:00 PM to 5:00 AM. He has a history of mild HEMA diagnosed via previous sleep study. CPAP therapy was attempted for 5 weeks but discontinued due to nasal irritation. Patient is awaiting evaluation for an oral appliance. Recent weight loss noted (205 lbs from previous 221 lbs), which may improve HEMA symptoms. Testosterone levels were reported as normal 4-5 months ago. Differential diagnoses include untreated HEMA, insufficient sleep syndrome, and other causes of hypersomnia. 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 He states his primary care physician has classified him as morbidly obese. Weight loss may improve HEMA symptoms and overall health. Plan: - Encourage continued weight loss efforts - Reinforce importance of weight management for improving HEMA and overall health Mood Disorder Assessment: Patient reports improved mood with current medication regimen. Denies suicidal thoughts or panic attacks. Occasional irritability noted, but within normal limits. No significant anxiety concerns reported. Plan: - Continue fluoxetine 40 mg daily - Monitor for any changes in mood, anxiety, or irritability 01/15/2025 Other Shweta Davsi, male patient, presents with primary complaints of low energy levels, fatigue, difficulty concentrating, and mental fog. Recent history of elevated HbA1c (9.4) indicating diabetes. Fatigue and Cognitive Symptoms Assessment: Patient reports significant fatigue, low energy levels, difficulty concentrating, and mental fog. Sleep quality is reported as good. Recent blood work showed elevated HbA1c of 9.4, indicating diabetes, which may contribute to fatigue symptoms. Testosterone levels were checked and found to be within normal range at approximately 400. Patient has lost some weight and increased exercise, but energy levels remain a concern. Plan: - Increase Modafinil to 200 mg, one tablet in the morning - Schedule follow-up in one month to assess medication tolerance and efficacy - Provide 90-day supply of medication at [facility] Sleep Disorder Evaluation Assessment: Despite reporting good sleep, a sleep study is being considered for further evaluation of fatigue symptoms. Plan: - Patient to schedule sleep study in a couple of weeks when off work 02/19/2025 Other Shweta Davis, male patient with history of mood and sleep issues, presents for follow-up with ongoing concerns about fatigue and relationship stress. FatigueAssessm ent: Patient reports persistent fatigue despite current treatment with modafinil 200 mg daily. He describes feeling like he's carrying around 9000 pounds of wet weight all day, starting off pretty good in the morning but steadily declining throughout the day. Sleep quality appears adequate, with patient reporting sleeping well both at home and while traveling. Recent lab work, including testosterone levels, were reported as normal. Patient's work schedule is demanding, working 5-7 days per week in a high-stress environment.Pl an:- Continue modafinil 200 mg daily for 30 days- Submit request for insurance coverage of armodafinil- Pending insurance approval, consider transitioning to armodafinil for potentially smoother, longer-lasting , and better-tolerat ed effect Depression and AnxietyAssessm ent: Patient reports no significant changes in mood or energy levels, though notes some improvement in energy. He experiences irritability, particularly when returning home from work. Current treatment includes fluoxetine 40 mg daily.Plan:- Continue fluoxetine 40 mg daily Marital ConflictAssess ment: Patient expressed significant marital tension and uncertainty about his 's willingness to engage in couples counseling. Discussion revealed underlying communication challenges and potential need for professional intervention to improve relationship dynamics.Plan: - Strongly recommend couples therapy as a means to address relationship stressors- Explore patient's hesitations and concerns about counseling- Provide referrals for marriage counseling- Consider individual counseling if joint therapy is not immediately feasible Sleep DisorderAssess ment: Patient has been referred to a sleep specialist and is awaiting a sleep study. Despite reported fatigue, he states he sleeps well both at home and while traveling, describing himself as at 8 o'clock at night.Plan:- Encourage patient to schedule and complete sleep study when work schedule permits Diabetes MellitusAssess ment: Patient reports recent improvement in diabetes management, with A1C back down to normal and ongoing weight loss.Plan:- Continue current diabetes management plan- Encourage ongoing weight loss efforts Medical Decision MakingShweta Davis is a male patient with a history of sleep issues and work-related stress presenting for follow-up of his mood and energy levels. The patient reports no significant changes in mood, with improved but still suboptimal energy levels. Sleep quality is reported as good, but the patient mentions feeling excessively tired by 8 PM. Recent labs, including A1C and testosterone, were reported as normal by the primary care physician. The patient's symptoms of carrying 9000 pounds of wet weight that worsens throughout the day, despite normal testosterone levels, suggest a need for further investigation. The current treatment with modafinil 200 mg daily has not produced a satisfactory response. Given the lack of significant improvement and the medication's long-term use, a change to armodafinil is being considered for its potentially smoother and longer-lasting effects. The decision to switch medications is based on the drug's newer formulation and reported better tolerability profile. 12/16/2024 Other Electronic Prio r Authorization was requested for Sunosi 75 MG Tablet. Provider can order medication once approval received. Plan Of Treatment Next Appt Details Provider Name:Fatoumata Crane venita, 03/26/2025 04:00:00 PM, [address], [address], [place], [address], Insurance Providers Payer Name Payer Address Payer Phone Subscriber Number Group Number Insured Name Patient Relationship to Insured Coverage Start Date Coverage End Date [facility] [address] [place] [address] [id number] SHWETA DAVIS Self - patient is the insured Medical (General) History Medical History History ICD Code Fatigue Obesity Obstructive sleep apnea syndrome Past Psychiatric History: Anxiety Disord er, Major Depressive Disorder Benign essential hypertension I10 DM (diabetes mellitus), type 2 E11.9 Erythrocytosis D75.1
--- NOTE | 2025-04-19 09:33 | P.SLEEP_ITS ---
Sleep Study Date of Study: 03/18/25 Ordering Provider: ONIEL Dial Interpreting Physician: Radha Adam DO Sleep Study Type: Polysomnogram Height: 1.68 m Weight: 85.729 kg Body Mass Index: 30.4 Neck Circumference (inches): 17 [place]: 4 Reason for Sleep Study Loud snoring Sleep History The patient is a 49-year-old male that had a sleep study ordered by the pulmonary group for evaluation of sleep apnea. The patient denies awakening from sleep short of breath. He denies awakening at night with heartburn, belching or cough. He occasionally snores and it is occasionally loud enough that others complain. He denies having trouble sleeping when he has a cold. He denies waking up gasping for air throughout the night. He occasionally has breathing problems at night observed by himself or others. He denies sweating excessively at night. He denies having heart palpitations or irregular heartbeats during the night. He denies falling asleep during the day and while driving. He denies sleep paralysis and cataplexy. He rarely has trouble at school or work due to sleepiness. He rarely experiences vivid dreamlike scenes upon awakening or falling asleep. He denies feeling afraid of going to sleep. He rarely has nightmares. He occasionally remembers his dreams. He denies having thoughts racing through his mind. He denies feeling sad, depressed or anxious. He denies having muscular tension. He rarely notices parts of his body jerk. He rarely kicks during the night. He denies having crawling and aching feelings in his legs and denies having leg pain during the night. He r jeremias grinds his teeth during sleep but never awakens with morning jaw pain. He is frequently bothered by pain during the day and occasionally awakened by pain during the night. He occasionally wakes up feeling stiff in the morning. He denies waking up with sore or achy muscles. He denies waking up with pain in the neck, spine and other joints. He goes to bed at 8:30 p.m. on weekdays and at 10:30 p.m. on the weekends. It takes him 20 minutes to fall asleep. He will wake up a few times throughout the night for unknown reasons but will be able to fall back asleep within a few minutes. He wakes up at 5:00 a.m. on weekdays and at 7:30 a.m. on the weekends. He typically gets 8 hours of sleep per night. He currently lives with his . He denies consuming any caffeinated beverages within 2 hours of bedtime. He denies engaging in physical exercise before bedtime. He will watch television before falling asleep. He denies taking naps in the afternoon the evening. He consumes 1 caffeinated beverage per day. He consumes 1 alcoholic beverage per week. He denies tobacco and recreational drug use. [facility] Past Medical History Medical History Elevated red blood cell count Wellness examination Gout Fatty liver HEMA (obstructive sleep apnea) Erythrocytosis Type 2 diabetes mellitus without complications Hyperlipidemia Essential hypertension Family History Family History Father Hypertension Sibling Hypertension Grandparent Family history of lung cancer Social History Social History Smoking status: Never smoker Second hand tobacco smoke exposure: No Alcohol intake: current Alcohol use details: rare Substance use: never Substance use type: does not use Living arrangements: with family Occupation/Education: occupation Gender identity (if verbalized by the patient): Male Sexual Orientation (if Verbalized by the Patient): Straight or Heterosexual Medications Home Medications ?Medication ?Instructions ?Recorded ?Confirmed ?Type flash glucose scanning reader #1 ea 12/11/21 01/15/25 Rx (FreeStyle Ashok 2 [place]) flash glucose sensor (FreeStyle #6 ea 12/11/21 5 Rx Ashok 14 Day Sensor kit) indomethacin 50 mg capsule 50 mg PO BID PRN gout #90 c aps 04/16/22 01/15/25 Rx lisinopril 40 mg tablet See Rx Instructions .Route 1 01/15/25 Rx .COMPLEX #90 tabs semaglutide 2 mg/dose (8 mg/3 mL) 2 mg (0.75 mL) subcu t WEEKLY #9 mL 09/04/24 01/15/25 Rx subcutaneous pen injector metformin 500 mg tablet,extended 1,000 mg (2 x 500 mg) PO DAILY 09/07/24 01/15/25 Rx release 24 hr #180 tabs eszopiclone 2 mg tablet (Lunesta) 2 mg PO ONCE #1 tabl et 10/16/24 01/15/25 Rx atorvastatin 10 mg tablet See Rx Instructions .Route 0 01/15/25 01/15/25 Rx .COMPLEX #90 tabs hydrochlorothiazide 25 mg tablet 25 mg PO DAILY #90 ta bs 01/30/25 Rx Sleep Procedure A full night polysomnogram using the [facility] multi-channel system recorded the standard physiologic parameters including EEG, EOG, submentalis EMG, anterior tibialis EMG, EKG, body position, nasal and oral airflow using ti al pressure sensor and thermistor.? Respiratory parameters of chest and abdominal movements were recorded with Respiratory Inductance Plethysmography belts. Oxygen saturation was recorded by pulse oximetry. Video monitoring was also performed. Sleep stages, periodic limb movements, and EEG arousals were scored in 30 second epochs according to the criteria of the AASM Scoring Manual. The Apnea-Hypopnea Index was calculated using CMS guidelines for definition of hypopnea with 4% O2 desaturations while scoring respiratory events. Sleep Architecture The total recording time was 482.3 minutes.? The total sleep time was 429.0 minutes. Sleep latency was 5.2 minutes. REM latency was 136.5 minutes. Sleep efficiency was 89.0%. The patient had 44 awakenings for an awakening index of 6.2. Wake after sleep onset time was 48.5 minutes. The patient spent 63.0 minutes, 14.7% of total sleep time in Stage N1. The patient spent 279.5 minutes, 65.2% in Stage N2. The patient spent 5.0 minutes, 1.2% in Stage N3. The patient spent 81.5 minutes, 19.0% in Stage REM sleep. Respiratory Analysis The patient had 70 hypopneas and 1 obstructive apnea for an overall Apnea Hypopnea Index of 9.8. The REM Apnea Hypopnea Index was 32.4. The NREM Apnea Hypopnea Index was 7.1. The patient had a Central Apnea Hypopnea Index of 0. There was no evidence of Dean-Jane Respirations. Arousals There were 248 total arousals for an arousal index of 34.7. There were 92 s pontaneous arousals for an index of 12.9. There were 35 arousals due to respiratory events for an index of 4.9. There were 84 arousals due to periodic limb movements for an index of 11.7.? There were 25 arousals due to isolated limb movements for an index of 3.5. Periodic Limb Movements The patient had 45 isolated limb movements with an index of 6.3. The patient had 243 periodic limb movements with an index of 34.0, which is elevated (normal < 15). Patient had a total of 288 limb movements with a total limb movement index of 40.3. Oximetry Data The patient had an average oxygen saturation of 90.3% in sleep with a minimum oxygen saturation of 79.0% and a maximum oxygen saturation of 96.0%. The patient had 70 oxygen desaturations that were 4% or greater resulting in an Oxygen Desaturation Index of 9.8.? The patient spent 36.9 minutes, 7.6% of total sleep time with an oxygen saturation below 88%. Snoring Profile Mild snoring was present intermittently throughout the study. Cardiac Profile The EKG showed normal sinus rhythm. The patient had an average pulse rate of 61.4 bpm with a minimum pulse of rate of 49.0 bpm and a maximum pulse rate of 88.0 bpm EEG Profile No signs of seizure activity seen. Assessment and Plan Assessment and Plan (1) HEMA (obstructive sleep apnea): Code(s): G47.33 - Obstructive sleep apnea (adult) (pediatric) Status: Acute Assessment and Plan: The patient had an overall AHI of 9.8 with desaturation down to 79%. This is consistent with mild sleep apnea. Due to the patient's diabetes, the patient qualifies for treatment. The patient does not wish to pursue CPAP as a treatment option. A mandibular advancement device is an acceptable treatment option. (2) PLMD (periodic limb movement disorder): Code(s): G47.61 - Periodic limb movement disorder Status: Acute Assessment and Plan: The patient had a significant number of limb movements during the study with the majority being periodic in nature. Approximately 1/3 of the periodic limb movements caused arousals in the patient's sleep. The patient's sleep history does not suggest Restless Leg Syndrome. I recommend that the patient have a serum ferritin drawn for evaluation of iron deficiency anemia. If the patient has a serum ferritin less than 75 ng/mL, I recommend starting a daily iron supplement and a Vitamin C supplement for better absorption. If the serum ferritin is greater than 75 ng/mL, I recommend starting a dopamine agonist and titrating the dose until symptoms resolve. There are nonpharmacological methods to treat limb movements including daily exercise, stretching calf muscles before bed, avoiding excessive amounts of caffeine and alcohol, vitamin B supplementati on, magnesium lotion massaged into legs before bed, and use of a weighted blanket. Data The data obtained during this sleep study is adequate for interpretation. Certification This sleep study has been reviewed by a board certified sleep medicine physician.
[2025-04-19 15:22] VITALS: BMI 30.4
== END 2025-03-19 06:40 | disposition home or self-care (01) ==
PROVIDERS: PCP Family Medicine; Visit Provider Physician Assistant
DX: G47.33 Obstructive sleep apnea (adult) (pediatric) (principal); G47.61 Periodic limb movement disorder
CPT/HCPCS: 95810